=== PATIENT | female | born 1960 | race Two or more races ===

== ENCOUNTER 2024-09-13 05:27 | Emergency (ER) | payer OTHER, SELFPAY ==
[~2024-09-13] VITALS: Ht 157.5 cm; Wt 69.0 kg
--- NOTE | 2024-09-13 05:31 | ECG ---
[facility] Test Date: 2024-09-13 Test Time: 05:29:24 Pat Name: SELVIN PINEDA Department: ED Room: Gender: F Hose Inspector: NU : 1960 Requested By: EMERGENCY EMERGENCY Order Number: [id number] Reading MD: Measurements Intervals [place] Rate: 74 P: 50 MN: 192 QRS: 55 QRSD: 87 T: 28 QT: 368 QTc: 409 Interpretive Statements Sinus rhythm Probable left atrial enlargement Please click the below link to view image of tracing.
[2024-09-13 07:15] VITALS: BP 107/54; PULSE 66; RESP 16; TEMP 97.7; O2SAT 96
--- NOTE | 2024-09-13 07:18 | ED.PDOC ---
History of Present Illness HPI Comments 64-year-old female presents to the ER with prior medical history of hypertension; surgical history of valve replacement surgery, cholecystectomy, C- section and a chief complaint of chest pain. Patient reports on waking up at 04:30a.m. this morning with chest pain radiating down the left arm and the back. Patient notes the the chest is tender to touch. Denies chills, fever, N/V/D, SOB. No other associated symptoms, modifiers, recent injuries or sick contacts present at this time. 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 History Family History Family History: Reviewed,noncontributory to illness, Unknown Social History Smoker: Non-Smoker Alcohol: Denies ETOH Use Drugs: Denies Drug Use Lives In: Home Constitutional: denies: chills, diaphoresis, fatigue, fever, malaise, sweats, weakness, others EENTM: denies: blurred vision, double vision, ear bleeding, ear discharge, ear drainage, ear pain, ear ringing, eye pain, eye redness, hearing loss, mouth pain, mouth swelling, nasal discharge, nose bleeding, nose congestion, nose pain, photophobia, tearing, throat pain, throat swelling, voice changes, others Respiratory: denies: cough, hemoptysis, orthopnea, SOB at rest, shortness of breath, SOB with excertion, stridor, wheezing, others Cardiovascular: reports: chest pain, left arm pain; denies: dizzy spells, diaphoresis, Dyspnea on exertion, edema, irregular heart beat, lightheadedness, palpitations, PND, syncope, others Gastrointestinal: denies: abdomen distended, abdominal pain, blood streaked bowels, constipated, diarrhea, dysphagia, difficulty swallowing, hematemesis, melena, nausea, poor appetite, poor fluid intake, rectal bleeding, rectal pain, vomiting, others Genitourinary: denies: abnormal vagina bleeding, burning, dyspareunia, dysuria, flank pain, frequency, hematuria, incontinence, pain, , vagina discharge, urgency, others Neurological: denies: dizziness, fainting, headache, left sided numbness, left sided weakness, numbness, paresthesia, pre-existing deficit, right sided numbness, right sided weakness, seizure, speech problems, tingling, tremors, weakness, others Musculoskeletal: reports: back pain; denies: gout, joint pain, joint swelling, muscle pain, muscle stiffness, neck pain, others Integumetry: denies: bruises, change in color, change in hair/nails, dryness, laceration, lesions, lumps, rash, wounds, others Allergic/Immunocompromised: denies: Difficulty Healing, Frequent Infections, Hives, Itching, others Hematologic/Lymphatic: denies: anemia, blood clots, easy bleeding, easy bruisi ng, swollen glands, others Endocrine: denies: excessive hunger, excessive sweating, excessive thirst, exce ssive urination, flushing, intolerance to cold, intolerance to heat, unexplained weight gain, unexplained weight loss, others Psychiatric: denies: anxiety, bipolar disorder, depression, hopeless, panic disorder, schizophrenia, sleepless, suicidal, others All Other Systems: Reviewed and Negative Physical Exam General Appearance: Moderate Distress, Normal HEENT: Normal ENT Inspection, Pharynx Normal, TMs Normal Neck: Full Range of Motion, Non-Tender, Normal, Normal Inspection Respiratory: Chest Non-Tender, Lungs Clear, No Accessory Muscle Use, No Respiratory Distress, Normal Breath Sounds Cardiovascular: No Edema, No JVD, No Murmur, No Gallop, Normal Peripheral Pulses, Regular Rate/Rhythm Breast Exam: Deferred Gastrointestinal: No Organomegaly, Non Tender, No Pulsatile Mass, Normal Bowel Sounds, Soft Genitalia: Deferred Pelvic: Deferred Rectal: Deferred Extremities: No calf tenderness, Normal capillary refill, Normal inspection, Normal range of motion, Non-tender, No pedal edema Musculoskeletal : Apperance: Normal Neurologic: Alert, sap integration architect II-XII nml as Tested, No Motor Deficits, Normal Affect, Normal Mood, No Sensory Deficits Cerebellar Function: Normal Reflexes: Normal Skin: Dry, Normal Color, Warm Peripheral Pulses: 3+ Radial (R), 3+ Radial (L) Lymphatic: No Adenopathy Was a procedure done? Was a procedure done?: No Differential Dx Considerations may include: Musculoskeletal pain Anxiety X-Ray, Labs, Meds, VS Vital Signs Date Time Temp Pulse Resp B/P (MAP) Pulse Ox O2 Delivery O2 Flow Rate FiO2 09/13/24 07:15 66 16 96 Room Air 09/13/24 07:15 97.7 66 16 107/54 (71) 96 97.7 09/13/24 06:29 67 09/13/24 05:35 96.6 70 15 115/69 (84) 95 96.6 09/13/24 05:29 74 Lab Test 09/13/24 06:35 09/13/24 05:40 Range/Units Troponin I High Sensitivity < 3 L 3 L </=34 ng/L Urine Color Yellow Yellow Urine Clarity Clear Clear Urine pH 5.5 5.0-9.0 Urine Specific [place] 1.023 1.001-1.035 Urine Protein Negative Negative Urine Ketones Negative Negative Urine Blood Negative Negative /uL Urine Nitrite Negative Negative Urine Bilirubin Negative Negative Urine Urobilinogen Normal Negative mg/dL Urine Leukocyte Esterase 1+ Negative /uL Urine RBC 1 0 - 4 /hpf Urine Microscopic WBC 3 0-5 /HPF Urine Squamous Epithelial Cells Few <5 /hpf Urine Calcium Oxalate Crystals Few None Seen Urine Bacteria None seen None Seen /hpf Urine Mucus Few None Seen Urine Glucose Normal Normal mg/dL Patient alert. No sign of distress. Vitals stable. Answering questions. EKG reviewed does not show any acute changes. Cardiac marker within normal limits. Saturation pristine on room air. Respiratory rate within normal limits. Heart rate within normal limits. Reviewed her history. UA shows UTI. Was given prescription of Macrobid antibiotic. Explained to the patient. Was told to follow up with her primary care physician. Was told to come back if there is any problem. Time of 1ST Reevaluation: 07:15 Reevaluation 1ST: Improved Patient Education/Counseling: Diagnosis, Treatment, Prognosis Family Education/Counseling: No Family Present SEPSIS Sepsis Screen Date sepsis recognized/suspect: Sep 13, 2024 Time Sepsis recognized/suspect: 0535 Recent Procedure: No On Antibiotic Therapy: No Respiratory Rate >20: No Heart Rate >90: No Temp<36 C (96.8 F) or >38.3 C: No SBP <90 or MAP <65 mmHG: No New Acute Mental Status Change: No Is the patient on CPAP, BIPAP,: No Physician Orders Electrocardigram (09/13/24 06:30) Electrocardigram (09/13/24 08:30) Vital Signs Date Time Temp Pulse Resp B/P (MAP) Pulse Ox O2 Delivery O2 Flow Rate FiO2 09/13/24 07:15 66 16 96 Room Air 09/13/24 07:15 97.7 66 16 107/54 (71) 96 97.7 09/13/24 06:29 67 09/13/24 05:35 96.6 70 15 115/69 (84) 95 96.6 09/13/24 05:29 74 Departure 1 Departure Time of Disposition: 07:28 Impression: Primary Impression: Musculoskeletal chest pain Additional Impression: UTI (urinary tract infection) Qualified Codes: N30.00 - Acute cystitis without hematuria Disposition: 01 HOME / SELF CARE / HOMELESS Condition: Good e-Prescriptions Nitrofurantoin Monohydrate Mac (Macrobid) 100 Mg Cap 100 MG PO BID for 5 Days, #10 CAP Prov: SRINI BURNETT MD 09/13/24 Discharged With: Self Critical Care Note Critical Care Time?: No Stability Stability form required: No Heart Score Heart Score: Heart Score Response (Comments) Value History Slightly Suspicious 0 EKG Normal 0 Age 45-64 1 Risk Factors 1 or 2 risk factors 1 Troponin Normal limit 0 Total 2 I personally scribed for SRINI BURNETT MD ([email or web address]) on 09/13/24 at 07:18. Electronically submitted by Capo Marshall ([email or web address]). SRINI BURNETT MD Sep 13, 2024 07:18
[2024-09-13 07:26] LABS: Urine Bacteria None Seen /hpf (None Seen)
[2024-09-13 07:38] LABS: Urine Blood Negative /uL (Negative); Urine Clarity Clear (Clear); Urine Color Yellow (Yellow); Urine Mucus FEW (None Seen); Urine Protein, UAD Negative (Negative); Urine Specific Gravity 1.023 (1.001-1.035); Urine Squamous Epithelial Cell FEW /hpf (<5); Urine Urobilinogen Normal (Negative); Urine WBC 3 /HPF (0-5); Urine pH 5.5 (5.0-9.0)
[2024-09-13] MEDS ORDERED: NITR-87 PO (07:45)
--- NOTE | 2024-09-15 08:53 | ECG ---
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
== END 2024-09-13 07:52 | disposition home or self-care (01) ==
LOC: ER 05:27
DX: N39.0 Urinary tract infection, site not specified (principal); M79.18 Myalgia, other site; I10 Essential (primary) hypertension; Z90.49 Acquired absence of other specified parts of digestive tract; Z95.2 Presence of prosthetic heart valve
CPT/HCPCS: 36415; 81001; 84484; 93005

== ENCOUNTER 2024-09-18 09:26 | Inpatient (IN) | payer SELFPAY ==
[~2024-09-18] VITALS: Ht 157.5 cm; Wt 72.5 kg
[~2024-09-18 09:26] MED LIST: NITR-87 PO
--- NOTE | 2024-09-18 09:41 | ED.PDOC ---
History of Present Illness HPI Comments 64-year-old female brought in by EMS presents with a chief complaint of syncope with associated diarrhea, weakness, and dizziness. Patient was getting up to use the restroom and had watery diarrhea. Patient then reports that she attempted to shower, but got really dizzy and then had a syncopal episode in the shower. 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: No Pertinent EXECUTIVE RECEPTIONIST History Family History Family History: Reviewed,noncontributory to illness, Unknown Social History Smoker: Non-Smoker Alcohol: Denies ETOH Use Drugs: Denies Drug Use Lives In: Home Constitutional: reports: weakness; denies: chills, diaphoresis, fatigue, fever, malaise, sweats, others EENTM: denies: blurred vision, double vision, ear bleeding, ear discharge, ear drainage, ear pain, ear ringing, eye pain, eye redness, hearing loss, mouth pain, mouth swelling, nasal discharge, nose bleeding, nose congestion, nose pain, photophobia, tearing, throat pain, throat swelling, voice changes, others Respiratory: denies: cough, hemoptysis, orthopnea, SOB at rest, shortness of breath, SOB with excertion, stridor, wheezing, others Cardiovascular: reports: syncope; denies: chest pain, dizzy spells, diaphoresis, Dyspnea on exertion, edema, irregular heart beat, left arm pain, lightheadedness, palpitations, PND, others Gastrointestinal: reports: diarrhea; denies: abdomen distended, abdominal pain, blood streaked bowels, constipated, dysphagia, difficulty swallowing, hemateme sis, melena, nausea, poor appetite, poor fluid intake, rectal bleeding, rectal pain, vomiting, others Genitourinary: denies: abnormal vagina bleeding, burning, dyspareunia, dysuria, flank pain, frequency, hematuria, incontinence, pain, , vagina discharge, urgency, others Neurological: reports: dizziness; denies: fainting, headache, left sided numbness, left sided weakness, numbness, paresthesia, pre-existing deficit, right sided numbness, right sided weakness, seizure, speech problems, tingling, tremors, weakness, others Musculoskeletal: denies: back pain, gout, joint pain, joint swelling, muscle pain, muscle stiffness, neck pain, others Integumetry: denies: bruises, change in color, change in hair/nails, dryness, laceration, lesions, lumps, rash, wounds, others Allergic/Immunocompromised: denies: Difficulty Healing, Frequent Infections, Hives, Itching, others Hematologic/Lymphatic: denies: anemia, blood clots, easy bleeding, easy bruising, swollen glands, others Endocrine: denies: excessive hunger, excessive sweating, excessive thirst, excessive urination, flushing, intolerance to cold, intolerance to heat, unexplained weight gain, unexplained weight loss, others Psychiatric: denies: anxiety, bipolar disorder, depression, hopeless, panic disorder, schizophrenia, sleepless, suicidal, others All Other Systems: Reviewed and Negative Physical Exam General Appearance: Moderate Distress, Normal HEENT: Normal ENT Inspection, Pharynx Normal, TMs Normal Neck: Full Range of Motion, Non-Tender, Normal, Normal Inspection Respiratory: Chest Non-Tender, Lungs Clear, No Accessory Muscle Use, No Respiratory Distress, Normal Breath Sounds Cardiovascular: No Edema, No JVD, No Murmur, No Gallop, Normal Peripheral Pulses, Regular Rate/Rhythm Breast Exam: Deferred Gastrointestinal: No Organomegaly, Non Tender, No Pulsatile Mass, Normal Bowel Sounds, Soft Genitalia: Deferred Pelvic: Deferred Rectal: Deferred Extremities: No calf tenderness, Normal capillary refill, Normal inspection, Normal range of motion, Non-tender, No pedal edema Musculoskeletal : Apperance: Normal Neurologic: Alert, sewer cleaner II-XII nml as Tested, No Motor Deficits, Normal Affect, Normal Mood, No Sensory Deficits Cerebellar Function: Normal Reflexes: Normal Skin: Dry, Normal Color, Warm Peripheral Pulses: 3+ Radial (R), 3+ Radial (L) Lymphatic: No Adenopathy Was a procedure done? Was a procedure done?: No EKG EKG : Pulse Rate (adult): 88 [place]: Normal Cardiac Rhythm: NSR Block: None Hypertrophy: None ST: Normal Differential Dx Considerations may include: Anemia Electrolyte imbalance X-Ray, Labs, Meds, VS Vital Signs Date Time Temp Pulse Resp B/P (MAP) Pulse Ox O2 Delivery O2 Flow Rate FiO2 09/18/24 09:41 88 09/18/24 09:34 98.2 87 18 135/51 (79) 98 98.2 09/18/24 09:32 88 Lab Test 09/18/24 10:02 09/18/24 09:55 Range/Units White Blood Count Pending Red Blood Count Pending Hemoglobin Pending Hematocrit Pending Mean Corpuscular Volume Pending Mean Corpuscular Hemoglobin Pending Mean Corpuscular Hemoglobin Concent Pending Red Cell Distribution Width Pending Platelet Count Pending Mean Platelet Volume Pending Neutrophils (%) (Auto) Pending Lymphocytes (%) (Auto) Pending Monocytes (%) (Auto) Pending Basophils (%) (Auto) Pending Neutrophils # (Auto) Pending Lymphocytes # (Auto) Pending Monocytes # (Auto) Pending Sodium Level Pending Potassium Level Pending Chloride Level Pending Carbon Dioxide Level Pending Anion Gap Pending Blood Urea Nitrogen Pending Creatinine Pending Glomerular Filtration Rate Calc Pending BUN/Creatinine Ratio Pending Serum Glucose Pending Calcium Level Pending Troponin I High Sensitivity Pending POC Glucose 81 70-106 mg/dl Current Medications Medications (Trade) Dose Ordered Sig/Leigh Route Start Time Stop Time Status Last Admin Sodium Chloride 1,000 ml @ 1,000 mls/hr Q1H ONCE IV 09/18/24 09:45 09/18/24 10:44 DC 09/18/24 09:45 Patient alert. Vitals stable. Possible near-syncope. Answering questions. Blood sugar within normal limits. Saturation pristine on room air. She is comfortable. Abdomen is soft nontender.y acute changes. Explained to the patient. Continue monitoring. CT of the head reviewed does not show an Time of 1ST Reevaluation: 10:01 Reevaluation 1ST: Unchanged Patient Education/Counseling: Diagnosis, Treatment, Need For Follow Up Family Education/Counseling: Diagnosis, Treatment, Need For Follow Up SEPSIS Sepsis Screen Physician Orders Head Without Contrast (09/18/24 09:33) Troponin-I Hs (09/18/24 09:33) Complete Blood Count (09/18/24 09:33) Chest Portable (09/18/24 09:33) Urinalysis (09/18/24 09:33) Basic Metabolic Panel (09/18/24 09:33) Electrocardigram (09/18/24 09:38) Ketorolac Injection (Toradol Injection) (09/18/24 10:45) Vital Signs Date Time Temp Pulse Resp B/P (MAP) Pulse Ox O2 Delivery O2 Flow Rate FiO2 09/18/24 09:41 88 09/18/24 09:34 98.2 87 18 135/51 (79) 98 98.2 09/18/24 09:32 88 Laboratory Tests Test 09/18/24 10:02 White Blood Count Pending Medications Medications Dose Ordered Sig/Leigh Route Start Time Stop Time Status Last Admin Dose Admin Sodium Chloride 1,000 ml @ 1,000 mls/hr Q1H ONCE IV 09/18/24 09:45 09/18/24 10:44 DC 09/18/24 09:45 Departure 1 Departure Time of Disposition: 10:12 Impression: Primary Impression: Near syncope Disposition: ADMITTED INPATIENT Admit to: Med Surg Condition: Guarded Critical Care Note Critical Care Time?: No Stability Stability form required: No Heart Score Heart Score: Heart Score Response (Comments) Value History N/A 0 EKG N/A 0 Age N/A 0 Risk Factors N/A 0 Troponin N/A 0 Total 0 I personally scribed for SRINI BURNETT MD ([email or web address]) on 09/18/24 at 09:41. Electronically submitted by Fleipe Lacey ([email or web address]). SRINI BURNETT MD Sep 18, 2024 09:41
[2024-09-18] MEDS: SODIUM CHLORIDE 0.9% 1,000 ML IV ONE ×2 (09:45→14:30)
[2024-09-18 09:50] VITALS: PULSE 90; RESP 16; O2SAT 96
--- NOTE | 2024-09-18 10:20 | DVH ---
CLINICAL INFORMATION: 64 years old, Female; syncope. TECHNIQUE: Axial imaging was obtained through the brain without contrast. Coronal and sagittal reform atted images were obtained, reviewed, and stored. Images were reviewed in brain and bone windows. Al l CT scans at this medical facility are performed using dose modulation techniques as appropriate to a performed exam including the following: Automated exposure control was utilized; adjustment of the MA and/or KV according to patient size; and use of iterative reconstruction technique. CTDIvol = 53.3 8 mGy DLP = 945.26 mGy-cm COMPARISON: None FINDINGS: There is no acute intracranial hemorrhage. No mass effect or midline shift. 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 The vent ricles and sulci are within normal limits in size for age. Basal cisterns are patent. The calvarium is unremarkable. Retention cyst versus polyp in the left maxillary sinus. Mastoid air cells are clear . IMPRESSION: 1. No CT evidence of acute intracranial abnormality. 2. Nonacute findings as described above.
[2024-09-18 10:31] LABS: Nucleated Red Blood Cells % 0.1 %
[2024-09-18 10:33] LABS: Hematocrit 40.0 % (36.0-46.0); Hemoglobin 12.8 g/dL (12.2-16.2); Mean Corpuscular Hemoglobin 20.8 pg (28.0-32.0); Mean Corpuscular Volume 64.8 fL (80.0-100.0)
--- NOTE | 2024-09-18 10:41 | DVH ---
CLINICAL INFORMATION: Shortness of breath. TECHNIQUE: Single AP portable chest radiograph was obtained. COMPARISON: None FINDINGS: Lungs: Clear. Cardiac: Heart size is within normal limits. Postsurgical changes of prior CABG. Pulmonary vasculature: Mildly prominent pulmonary vasculature. Mediastinum/mark anthony: Unremarkable. Bones: No acute osseous abnormality identified. Suture anchors in the left proximal humerus. Other: No other significant findings. IMPRESSION: Mildly prominent pulmonary vasculature, may be seen with mild pulmonary vascular congestion in the ap propriate clinical setting, although heart size is within normal limits. Correlate with clinical find ings.
[2024-09-18] MEDS: KETOROLAC TROMETH 30 MG/ML 1ML VIAL IV ONE (10:48)
[2024-09-18 10:55] LABS: Potassium 4.7 mmol/L (3.5-5.1); Sodium 140 mmol/L (136-145)
[2024-09-18 10:56] LABS: Anion Gap 10 (5-15); Carbon Dioxide 20 mmol/L (20-31)
[2024-09-18 10:57] LABS: Calcium 9.8 mg/dL (8.7-10.4)
[2024-09-18 11:02] LABS: BUN/Creatinine Ratio 20.8 (10.0-20.0); Blood Urea Nitrogen 25 mg/dL (9-23); Chloride 110 mmol/L (98-107); Glucose 95 mg/dL (74-106)
[2024-09-18] MEDS: SODIUM CHLORIDE 0.9% 2,000 ML IV ONE (11:32)
[2024-09-18] MEDS: HYDROcodone-ACET 5/325MG TAB PO ONE (13:23)
[2024-09-18 13:57] LABS: Urine Protein, UAD Negative (Negative)
--- NOTE | 2024-09-18 18:23 | DVHHP2 ---
Admitting Diagnosis: Syncope History of Present Illness 64-year-old female brought in by EMS presents with a chief complaint of syncope with associated diarrhea, weakness, and dizziness. Patient was getting up to use the restroom and had watery diarrhea. Patient then reports that she attempted to shower, but got really dizzy and then had a syncopal episode in the shower. 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 History Family History Family History: Reviewed,noncontributory to illness, Unknown Social History Smoker: Non-Smoker Alcohol: Denies ETOH Use Drugs: Denies Drug Use Lives In: Home Allergies: Coded Allergies: NO KNOWN ALLERGIES (Unverified , 09/13/24) Home Meds Active Scripts Nitrofurantoin Monohydrate Mac (Macrobid) 100 Mg Cap, 100 MG PO BID for 5 Days, #10 CAP Prov:SRINI BURNETT MD 09/13/24 Vital Signs Vital Signs Date Time Temp Pulse Resp B/P (MAP) Pulse Ox O2 Delivery O2 Flow Rate FiO2 09/18/24 17:20 92 16 93/47 (62) 95 09/18/24 09:50 Room Air* 0 21 09/18/24 09:50 98.3 98.3 Physical Exam General-64 years old woman, resting in bed. Mild distress HEENT-no side tenderness from fall. no hematoma Heart-regular rate and rhythm Lungs clear to auscultate Abdomen soft nontender nondistended Musculoskeletal-no edema cyanosis Neuro-AO x3, no focal deficit Results Labs Test 09/18/24 11:30 09/18/24 10:02 09/18/24 09:55 Range/Units Urine Color Light-yellow Yellow Urine Clarity Clear Clear Urine pH 5.0 5.0-9.0 Urine Specific [place] 1.009 1.001-1.035 Urine Protein Negative Negative Urine Ketones Negative Negative Urine Blood Negative Negative /uL Urine Nitrite Negative Negative Urine Bilirubin Negative Negative Urine Urobilinogen Normal Negative mg/dL Urine Leukocyte Esterase Negative Negative /uL Urine RBC 1 0 - 4 /hpf Urine Microscopic WBC < 1 0-5 /HPF Urine Squamous Epithelial Cells None seen <5 /hpf Urine Bacteria None seen None Seen /hpf Urine Hyaline Casts Few 0 - 2 /lpf Urine Mucus Few None Seen Urine Glucose Normal Normal mg/dL White Blood Count 8.3 4.4-10.8 10^3/uL Red Blood Count 6.16 H 4.0-5.20 10^6/uL Hemoglobin 12.8 12.2-16.2 g/dL Hematocrit 40.0 36.0-46.0 % Mean Corpuscular Volume 64.8 L 80.0-100.0 fL Mean Corpuscular Hemoglobin 20.8 L 28.0-32.0 pg Mean Corpuscular Hemoglobin Concent 32.1 32.0-36.0 g/dL Red Cell Distribution Width 16.0 H 11.8-14.3 % Platelet Count 208 140-450 10^3/uL Mean Platelet Volume 10.2 6.9-10.8 fL Neutrophils (%) (Auto) 89.6 H 37.0-80.0 % Lymphocytes (%) (Auto) 5.0 L 10.0-50.0 % Monocytes (%) (Auto) 4.5 0.0-12.0 % Eosinophils (%) (Auto) 0.7 0.0-7.0 % Basophils (%) (Auto) 0.2 0.0-2.0 % Neutrophils # (Auto) 7.4 1.6-8.6 10 ^3/uL Lymphocytes # (Auto) 0.4 0.4-5.4 10 ^3/uL Monocytes # (Auto) 0.4 0-1.3 10 ^3/uL Eosinophils # (Auto) 0.1 0-0.8 10 ^3/uL Basophils # (Auto) 0 0-0.2 10 ^3/uL Nucleated Red Blood Cells 0.1 % Sodium Level 140 136-145 mmol/L Potassium Level 4.7 3.5-5.1 mmol/L Chloride Level 110 H 98-107 mmol/L Carbon Dioxide Level 20 20-31 mmol/L Anion Gap 10 5-15 Blood Urea Nitrogen 25 H 9-23 mg/dL Creatinine 1.20 H 0.550-1.02 mg/dL Glomerular Filtration Rate Calc 51 >90 mL/min BUN/Creatinine Ratio 20.8 H 10.0-20.0 Serum Glucose 95 74-106 mg/dL Calcium Level 9.8 8.7-10.4 mg/dL Troponin I High Sensitivity < 3 L </=34 ng/L B-Type Natriuretic Peptide 67.59 0-100 pg/mL POC Glucose 81 70-106 mg/dl Primary Diagnosis Syncope Rib pain Back pain Plan Patient states that her mother has resolved Pain after fall patient had a pain, back pain and right chest pain X-ray of the head and chest x-ray shows no fractures hematoma Check x-ray of lumbar spine thoracic spine and pelvis Check echo of the heart to rule out heart disease Carotid Doppler to rule out stenosis Neuro check per floor protocol IV fluids Repeat orthostatic vitals tomorrow morning Regular diet Full code Lovenox for DVT prophylaxis No GI prophylaxis needed Plan discussed with: Patient Date of Service: Sep 18, 2024 Billing Provider: FARHAD GREGG MD Common Visit Codes: 68172-[id number] INP/OBS CARE (HIGH) FARHAD GREGG MD Sep 18, 2024 18:23
[2024-09-18] MEDS ORDERED: ACETAMINOPHEN 325 MG TAB PO PRN (18:30)
[2024-09-18] MEDS ORDERED: ONDANSETRON HCL 4 MG/2 ML VIAL IV PRN (18:30)
[2024-09-18] MEDS ORDERED: DOCUSATE SOD 100 MG CAP PO PRN (18:30)
[2024-09-18] MEDS ORDERED: KETOROLAC TROMETH 30 MG/ML 1ML VIAL IV PRN (18:30)
[2024-09-18] MEDS: LACTATED RINGER'S 1,000 ML IV ONE (18:53)
--- NOTE | 2024-09-18 18:53 | ECG ---
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
--- NOTE | 2024-09-18 19:51 | DVH ---
EXAM: XY LUMBAR SPINE 3 VIEW INDICATION: fall with back pain COMPARISON: None TECHNIQUE: 3 views of the lumbar spine were obtained. Findings: There is no evidence of spondylolysis. Minimal grade 1 anterolisthesis of L4 on L5. Age-indeterminate moderate wedge-shaped compression fracture of T12. The disc spaces are well-maintained. No blastic or lytic lesions are appreciated. No radiopaque foreign bodies. No superficial soft tissue abnormalities. Impression: 1. Age-indeterminate moderate wedge-shaped compression fracture of T12. 2. Minimal grade 1 anterolisthesis of L4 on L5.
--- NOTE | 2024-09-18 19:52 | DVH ---
EXAM: XY SPINE THORACIC 2VIEW INDICATION: back pain r/o fall from syncope COMPARISON: None TECHNIQUE: 2 views of the thoracic spine were obtained. Findings: There is no evidence of spondylolysis, or spondylolisthesis. Age-indeterminate moderate wedge-shaped compression fracture T12. The disc spaces are well-maintained. No blastic or lytic lesions are appreciated. No radiopaque foreign bodies. No superficial soft tissue abnormalities. Impression: 1. Age-indeterminate moderate wedge-shaped compression fracture T12.
--- NOTE | 2024-09-18 19:55 | DVH ---
EXAM: XY PELVIS AP CLINICAL HISTORY: back pain r/o fall from syncope COMPARISON: None TECHNIQUE: XY PELVIS AP Findings/Impression: Single frontal view of the pelvis. There is no evidence of an acute fracture, dislocation, blastic, or lytic lesions. No radiopaque foreign bodies. No superficial soft tissue abnormalities.
[2024-09-18] MEDS ORDERED: WARF-112 PO (21:04)
[2024-09-18] MEDS ORDERED: ASPI-325 PO (21:04)
[2024-09-18] MEDS ORDERED: FER325T PO (21:04)
[2024-09-18] MEDS ORDERED: FENO160T PO (21:04)
[2024-09-18] MEDS ORDERED: CHOL20003 PO (21:04)
[2024-09-18] MEDS ORDERED: FURO20TA4 PO (21:04)
[2024-09-18] MEDS ORDERED: MET25T PO (21:04)
[2024-09-18 21:26] VITALS: BP 99/54; PULSE 93; RESP 18; TEMP 98.2; O2SAT 97
[2024-09-18] MEDS: SODIUM CHLOR 0.9% PF (SALINE LOCK) 10ML VIAL/SYR IV SCH (22:00)
[2024-09-19] VITALS (7 sets, daily range): BP systolic 92–116; BP diastolic 53–67; PULSE 82–95; RESP 17–19; TEMP 98.2–99.9; O2SAT 94–97
[2024-09-19] MEDS: KETOROLAC TROMETH 30 MG/ML 1ML VIAL IV PRN (04:19)
--- NOTE | 2024-09-19 10:34 | DVH ---
CLINICAL HISTORY: syncope TECHNIQUE: Duplex carotid Doppler ultrasound was performed. Grayscale, color-flow, and spectral wavef orm analysis was performed. COMPARISON: None FINDINGS: There is minimal plaque seen on lewis scale imaging in the carotid bifurcations and proximal ICAs bila terally. There is no significant elevation of the peak systolic velocity. There is no significant spectral broadening. Color doppler examination demonstrates no evidence for significant turbulent fl ow. Findings correspond to the less than 50% stenosis category. Antegrade flow is noted in both valerie tebral arteries. EXAMINATION DATA: RIGHT PSV (cm/s) EDV (cm/s) ICA 87 27 CCA 78 ECA 99 ICA/CCA Ratio: 1.1 Vertebral Flow: antegrade LEFT PSV (cm/s) EDV (cm/s) ICA 108 27 CCA 70 ECA 98 ICA/CCA Ratio: 1.5 Vertebral Flow: antegrade IMPRESSION: Findings consistent with the less than 50% carotid stenosis category bilaterally.
--- NOTE | 2024-09-19 10:57 | DVHPN2 ---
Reviewed: Care Plan, H&P, Labs, Medications, Previous Orders, Radiology Changes from previous H/P or p: No Changes General: Per HPI Objective Vitals Vital Signs Date Time Temp Pulse Resp B/P (MAP) Pulse Ox O2 Delivery O2 Flow Rate FiO2 09/19/24 08:46 98.8 87 17 93/53 (66) 94 98.8 09/19/24 02:44 Room Air* 0 21 Intake/Output Intake and Output 09/19/24 07:00 Intake Total 4000 ml Output Total 700 ml Balance 3300 ml Intake Oral 0 ml IV Total 4000 ml Output Urine Total 700 ml # Voids 1 General Appearance: Alert, Oriented X3, Cooperative HEENT: Atraumatic Cardiovascular: Regular rate, Normal S1 Extremities: No clubbing, No cyanosis Medications Current Medications Medications Dose Ordered Sig/Leigh Route Start Time Stop Time Status Last Admin Dose Admin Sodium Chloride 10 ml Q8HR IV 09/18/24 22:00 09/19/24 06:35 10 ML Docusate Sodium 100 mg BIDPRN PRN PO 09/18/24 18:30 Acetaminophen 650 mg Q6HP PRN PO 09/18/24 18:30 Acetaminophen/ Hydrocodone Bitart 1 tab Q4HP PRN PO 09/18/24 18:30 Ondansetron HCl 4 mg Q4HP PRN IV 09/18/24 18:30 Enoxaparin Sodium 40 mg DAILY SC 09/19/24 10:00 Ketorolac Tromethamine 15 mg Q8H PRN IV 09/18/24 19:00 09/23/24 18:29 09/19/24 04:19 15 MG Laboratory Results Laboratory Tests 09/18/24 10:02 Urinalysis Test 09/18/24 11:30 Urine Color Light-yellow (Yellow) Urine Clarity Clear (Clear) Urine pH 5.0 (5.0-9.0) Urine Specific [place] 1.009 (1.001-1.035) Urine Protein Negative (Negative) Urine Ketones Negative (Negative) Urine Blood Negative /uL (Negative) Urine Nitrite Negative (Negative) Urine Bilirubin Negative (Negative) Urine Urobilinogen Normal mg/dL (Negative) Urine Leukocyte Esterase Negative /uL (Negative) Urine RBC 1 /hpf (0 - 4) Urine Microscopic WBC < 1 /HPF (0-5) Urine Squamous Epithelial Cells None seen /hpf (<5) Urine Bacteria None seen /hpf (None Seen) Urine Hyaline Casts Few /lpf (0 - 2) Urine Mucus Few (None Seen) Urine Glucose Normal mg/dL (Normal) Labs and/or images reviewed: Labs reviewed by me, Image(s) reviewed by me Assessment/Plan Assessment/Plan Syncope , ruling out cardiac etiology Rib pain Back pain Diarrhea 09/19/2024. Patient is pending an echo. Neurology and Cardiology consulted. We will await for their full evaluation Discussed with son at the bedside Plan discussed with: Patient Date of Service: Sep 19, 2024 Billing Provider: AIDEN PEREZ DO Common Visit Codes: [id number] INP/OBS CARE(HIGH) AIDEN PEREZ DO Sep 19, 2024 10:57
[2024-09-19] MEDS: ENOXAPARIN SOD 40 MG/0.4 ML SYRINGE SC SCH (11:45)
--- NOTE | 2024-09-19 16:06 | DVHSR ---
APPROVED REPORT EXAM: LIMITED Two-dimensional and M-mode echocardiogram with Doppler and color Doppler. Blood Pressure: 93/53 mmHg INDICATION Syncope Surgery/Intervention Valve Replacement: Mechanical RISK FACTORS Height: 5' 2", Weight: 158 DIMENSIONS LVDd4.0 (3.8-5.7cm)LA (2D)3.9 (1.9-4.0cm)Aortic Root (2.0-3.7cm) LVDs2.6 (2.5-4.0cm)LA (MM) (1.9-4.0cm)Aortic Cusp Exc (1.5-2.0cm) EF (%) 65.0 (55-70%)Rt. Atrium4.0 (1.9-4.0cm)Asc. Aorta cm IVSd1.1 (0.7-1.1cm)RV (D) (1.8-2.4cm) PWd0.9 (0.7-1.1cm) Mitral Valve MitralMitral Stenosis E wave0.90m/sMV Mean GR.mmHg A wave1.00m/sMV Peak GR.mmHg E/A ratio0.92D MVAcm2 Aortic Valve Aortic ValveAortic Stenosis V11.10m/Christopher Mean GR.14mmHg V22.40m/Christopher Peak GR.24mmHg LVOT Diameter2.1 (1.8-2.4cm)Doppler AVA1.59cm2 Pulmonic Valve V20.80m/s Tricuspid Valve TR Velocity2.30m/s [id number] Other Information Quality : Technically LimitedRhythm : Technically limited study due to CABG. Conclusion lvef 55% moderate LVH normal rv function no severe valve abnormalities noted sp AVR mild mitral regurg
[2024-09-19] MEDS: HYDROcodone-ACET 5/325MG TAB PO PRN (17:33)
[2024-09-20] VITALS (7 sets, daily range): BP systolic 93–117; BP diastolic 53–71; PULSE 82–103; RESP 18–20; TEMP 98.2–98.5; O2SAT 95–96
[2024-09-20] MEDS: ACETAMINOPHEN 325 MG TAB PO PRN (04:13)
--- NOTE | 2024-09-20 10:04 | DVHINCON2 ---
Date of service: Sep 20, [address] aLwson Reason for Consultation Syncope History of Present Illness Ms. Lozada is a 64 years old right-handed female with a history of hypotension, overweight, she was admitted to the [facility] on 09/18/2024 with a chief complaint of passing out. At this time, she is alert and fully oriented, she and her provided the following history On 09/18/2024, when she was standing and just started showering, she has a hot flash arising from the bottom of her body to the head, along with a feeling that she was passing out, nausea, increased sweating, but next memory was waking up on the floor confused but she knew the place, time, and what she was doing supposed to do, she also woke up with nausea, increased sweating, headache before she had mumps head, but there was no chest pain. She has never had similar problem before, she has had no history of seizure or stroke On 09/20/2024, the patient had mild dizziness when she was request to stand up and walking On 08/27/2024, she came to the [facility] Emergency room with a chief complaint of chest pain and left arm weakness, but he was discharged because nothing wrong was found Urinalysis, 09/18/2024: Unremarkable CBC, 09/18/2024: Unremarkable BUN/CR, 09/18/2024: 25/102 GFR, 09/18/2024: 51 Troponin one high sensitivity, 09/13/24: 3, <3, 09/18/2024: <3 Echocardiogram, 09/19/2024: vef 55% moderate LVH normal rv function no severe valve abnormalities noted sp AVR mild mitral regurg Carotid Doppler, 09/19/2024: Findings consistent with the less than 50% carotid stenosis category bilaterally CT head, 09/18/2024: 1. No CT evidence of acute intracranial abnormality. 2. 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) Past Medical History Hypotension for many years Past Surgical History Cholecystectomy, Family History: Diabetes mellitus G8 MOTHER FH: heart attack G8 FATHER, Hypertension G8 MOTHER Family History Diabetes, coronary artery disease, heart attack, cardiomegaly Social History She is a not tobacco smoke, she denies a history of drug or alcohol abuse Allergies: Coded Allergies: NO KNOWN ALLERGIES (Unverified , 09/13/24) Home Meds Reported Medications Fenofibrate (Fenofibrate) 160 Mg Tab, 1 TAB PO DAILY 09/18/24 Aspirin (Aspirin Low Dose) 81 Mg Tab, 1 TAB PO DAILY 09/18/24 Warfarin Sodium (Warfarin Sodium) 4 Mg Tab, 1 TAB PO DAILY 09/18/24 Furosemide (Furosemide) 20 Mg Tab, 1 TAB PO DAILY 09/18/24 Metoprolol Tartrate (Lopressor) 25 Mg Tb, 1 TAB PO BID 09/18/24 Cholecalciferol (Vitamin D-3 Super Strengt) 2,000 Unit Tab, 50 MCG PO DAILY 09/18/24 Ferrous Sulfate (Ferrous Sulfate) 325 Mg Tab, 1 TAB PO DAILY 09/18/24 Current Medications Current Medications Medications (Trade) Dose Ordered Sig/Leigh Route PRN Reason Start Time Stop Time Status Last Admin Enoxaparin Sodium (Lovenox) 40 mg DAILY SC 09/19/24 10:00 09/19/24 11:45 Loperamide HCl (Imodium Capsule) 2 mg PRN PRN PO FOR DIARRHEA 09/20/24 04:15 Review of Systems As above, the other systems are negative Vital Signs Vital Signs Date Time Temp Pulse Resp B/P (MAP) Pulse Ox O2 Delivery O2 Flow Rate FiO2 09/20/24 08:11 98.5 89 18 103/59 (74) 95 98.5 09/20/24 08:00 Room Air* 0 21 Physical Exam GENERAL EXAM: General: the patient is well developed and nourished. No acute distress. HEENT: Normocephalic, neck is supple, no carotid bruits. No mass. RESPIRATORY: Normal respiratory effort with symmetrical lung expansion. Lungs clear to auscultation. CARDIOVASCULAR: Regular rate and rhythm with no murmurs. S1, S2. ABDOMEN: Soft, nontender, normal bowel sound NEUROLOGICAL: MENTAL STATUS: Awake and alert. Oriented to person, place, time and general circumstances. Able to give personal history. SPEECH, LANGUAGE, HIGHER CORTICAL FUNCTION: no aphasia or dysathria. CRANIAL NERVES: #2: Intact visual feldman to confrontation. The optic discs were sharp. #3,4,6: Pupils are equal, round and reactive. EOMs full and conjugate. Mild bilateral gaze evoked nystagmus. #5: Facial sensation intact in all three divisions bilaterally. Mandibular strength intact. #7: Facial muscles symmetrical and strength intact. #8: Hearing grossly normal to voice. #9,10: Uvula and soft palate rise in the midline. Swallow and voice are normal. #11: Trapezius and sternomastoid strength intact bilaterally. #12: Tongue midline. No fasciculations or atrophy. SENSATION: Sensation to touch and pinprick is normal. MOTOR: Normal tone in the upper and lower extremity. Normal muscle bulk. No fasciculations. No abnormal movements or posturing. Muscle strength of the major groups in the upper extremities is 5/5. Muscle strength of the major groups in the lower extremities is 5/5. REFLEXES: Deep tendon reflexes normal and symmetrical. No pathological reflexes. CEREBELLAR/COORDINATION: Finger to nose and heel to hancock are normal bilateral ly. GAIT/STATION: With normal Labs/Diagnostic Data Labs Test 09/18/24 11:30 09/18/24 10:02 09/18/24 09:55 Range/Units Urine Color Light-yellow Yellow Urine Clarity Clear Clear Urine pH 5.0 5.0-9.0 Urine Specific [place] 1.009 1.001-1.035 Urine Protein Negative Negative Urine Ketones Negative Negative Urine Blood Negative Negative /uL Urine Nitrite Negative Negative Urine Bilirubin Negative Negative Urine Urobilinogen Normal Negative mg/dL Urine Leukocyte Esterase Negative Negative /uL Urine RBC 1 0 - 4 /hpf Urine Microscopic WBC < 1 0-5 /HPF Urine Squamous Epithelial Cells None seen <5 /hpf Urine Bacteria None seen None Seen /hpf Urine Hyaline Casts Few 0 - 2 /lpf Urine Mucus Few None Seen Urine Glucose Normal Normal mg/dL White Blood Count 8.3 4.4-10.8 10^3/uL Red Blood Count 6.16 H 4.0-5.20 10^6/uL Hemoglobin 12.8 12.2-16.2 g/dL Hematocrit 40.0 36.0-46.0 % Mean Corpuscular Volume 64.8 L 80.0-100.0 fL Mean Corpuscular Hemoglobin 20.8 L 28.0-32.0 pg Mean Corpuscular Hemoglobin Concent 32.1 32.0-36.0 g/dL Red Cell Distribution Width 16.0 H 11.8-14.3 % Platelet Count 208 140-450 10^3/uL Mean Platelet Volume 10.2 6.9-10.8 fL Neutrophils (%) (Auto) 89.6 H 37.0-80.0 % Lymphocytes (%) (Auto) 5.0 L 10.0-50.0 % Monocytes (%) (Auto) 4.5 0.0-12.0 % Eosinophils (%) (Auto) 0.7 0.0-7.0 % Basophils (%) (Auto) 0.2 0.0-2.0 % Neutrophils # (Auto) 7.4 1.6-8.6 10 ^3/uL Lymphocytes # (Auto) 0.4 0.4-5.4 10 ^3/uL Monocytes # (Auto) 0.4 0-1.3 10 ^3/uL Eosinophils # (Auto) 0.1 0-0.8 10 ^3/uL Basophils # (Auto) 0 0-0.2 10 ^3/uL Nucleated Red Blood Cells 0.1 % Sodium Level 140 136-145 mmol/L Potassium Level 4.7 3.5-5.1 mmol/L Chloride Level 110 H 98-107 mmol/L Carbon Dioxide Level 20 20-31 mmol/L Anion Gap 10 5-15 Blood Urea Nitrogen 25 H 9-23 mg/dL Creatinine 1.20 H 0.550-1.02 mg/dL Glomerular Filtration Rate Calc 51 >90 mL/min BUN/Creatinine Ratio 20.8 H 10.0-20.0 Serum Glucose 95 74-106 mg/dL Calcium Level 9.8 8.7-10.4 mg/dL Troponin I High Sensitivity < 3 L </=34 ng/L B-Type Natriuretic Peptide 67.59 0-100 pg/mL POC Glucose 81 70-106 mg/dl Assessment Passing out Syncope Partial complex seizure, less likely TIA, less likely Chronic hypotension (confirmed in the hospital) Recent chest pain Plan/Recommendation Monitoring Supportive treatment Telemetry EEG MR head Syncopal precautions discussed Cardiology evaluation More recommendation per clinical course Progress: Poor This medical document was created using an electronic medical record system with [employer] system. Although this document has been carefully reviewed, there may still be some phonetic and typographical errors. These areas are purely typographical due to imperfections of the software programs, and do not reflect any compromise in the patient's medical care. Plan discussed with: Patient, Spouse, Other DOV MILLARD MD 7, 2025 10:04
[2024-09-20] MEDS: LOPERAMIDE HCL 2 MG CAP/TAB PO PRN (11:37)
[2024-09-20] MEDS: LORazepam 2MG/ML-1ML VIAL IV PRN (11:38)
--- NOTE | 2024-09-20 13:25 | DVHCONRES ---
Date Seen: Sep 20, 2024 Resident Creating Document: ELVIS TURK RESDIENT History of Present Illness This is a 64-year-old female with past medical history of hypertension, aortic valve replacement came to the hospital status post loss of consciousness. Per patient, she has diarrhea for couple of days. Yesterday, upon taking shower she felt dizzy, blurry vision and subsequently lost consciousness. She denies chest pain, shortness of breath, fever, palpitation, or any recent sick contact. Cardiology consulted for to rule out cardiac cause of syncope. She sees Dr. Donahue at office PMHx: hypertension, aortic valve replacement PSHx: Aortic valve replacement Home medication: Aspirin, fenofibrate, Lasix 20 mg daily, metoprolol 25 mg, and warfarin 4 mg daily Allergic history: No known allergy Patient seen and examined at bedside. Patient is complaining of headache and right-sided body pain due to traumatic injury. Family History: Diabetes mellitus G8 MOTHER FH: heart attack G8 FATHER, Hypertension G8 MOTHER Allergies: Coded Allergies: NO KNOWN ALLERGIES (Unverified , 09/13/24) Home Meds Reported Medications Fenofibrate (Fenofibrate) 160 Mg Tab, 1 TAB PO DAILY 09/18/24 Aspirin (Aspirin Low Dose) 81 Mg Tab, 1 TAB PO DAILY 09/18/24 Warfarin Sodium (Warfarin Sodium) 4 Mg Tab, 1 TAB PO DAILY 09/18/24 Furosemide (Furosemide) 20 Mg Tab, 1 TAB PO DAILY 09/18/24 Metoprolol Tartrate (Lopressor) 25 Mg Tb, 1 TAB PO BID 09/18/24 Cholecalciferol (Vitamin D-3 Super Strengt) 2,000 Unit Tab, 50 MCG PO DAILY 09/18/24 Ferrous Sulfate (Ferrous Sulfate) 325 Mg Tab, 1 TAB PO DAILY 09/18/24 Current Medications Current Medications Medications (Trade) Dose Ordered Sig/Leigh Route PRN Reason Start Time Stop Time Status Last Admin Loperamide HCl (Imodium Capsule) 2 mg PRN PRN PO FOR DIARRHEA 09/20/24 04:15 09/20/24 11:37 Lorazepam (Ativan Inj) 1 mg ONCE PRN IV MRI 09/20/24 10:45 09/20/24 11:38 Vital Signs Vital Signs Date Time Temp Pulse Resp B/P (MAP) Pulse Ox O2 Delivery O2 Flow Rate FiO2 09/20/24 13:00 98.5 82 18 106/58 (74) 96 98.5 09/20/24 08:00 Room Air* 0 21 Physical Exam General Appearance: Alert, Oriented X3, Cooperative, No acute distress HEENT: Atraumatic, PERRLA, EOMI, Mucous membrane moist/pink Respiratory: Clear to auscultation, Normal air movement Cardiovascular: Regular rate, Normal S1, Normal S2, No murmurs, no chest wall tenderness Abdominal: Normal bowel sounds, Soft, No tenderness, No hepatospenomegaly, No masses Extremities: No clubbing, No cyanosis, No edema, Normal pulses, No tenderness/swelling Skin: No rashes, No breakdown, No significant lesion Neuro: Normal gait, Normal speech, Strength at 5/5 X4 ext, Normal tone, Sensation intact, Cranial nerves 3-12 NL, Reflexes 2+ Psych/Mental Status: Mental status NL, Mood NL Labs/Diagnostic Data Labs Test 09/18/24 11:30 09/18/24 10:02 09/18/24 09:55 Range/Units Urine Color Light-yellow Yellow Urine Clarity Clear Clear Urine pH 5.0 5.0-9.0 Urine Specific [place] 1.009 1.001-1.035 Urine Protein Negative Negative Urine Ketones Negative Negative Urine Blood Negative Negative /uL Urine Nitrite Negative Negative Urine Bilirubin Negative Negative Urine Urobilinogen Normal Negative mg/dL Urine Leukocyte Esterase Negative Negative /uL Urine RBC 1 0 - 4 /hpf Urine Microscopic WBC < 1 0-5 /HPF Urine Squamous Epithelial Cells None seen <5 /hpf Urine Bacteria None seen None Seen /hpf Urine Hyaline Casts Few 0 - 2 /lpf Urine Mucus Few None Seen Urine Glucose Normal Normal mg/dL White Blood Count 8.3 4.4-10.8 10^3/uL Red Blood Count 6.16 H 4.0-5.20 10^6/uL Hemoglobin 12.8 12.2-16.2 g/dL Hematocrit 40.0 36.0-46.0 % Mean Corpuscular Volume 64.8 L 80.0-100.0 fL Mean Corpuscular Hemoglobin 20.8 L 28.0-32.0 pg Mean Corpuscular Hemoglobin Concent 32.1 32.0-36.0 g/dL Red Cell Distribution Width 16.0 H 11.8-14.3 % Platelet Count 208 140-450 10^3/uL Mean Platelet Volume 10.2 6.9-10.8 fL Neutrophils (%) (Auto) 89.6 H 37.0-80.0 % Lymphocytes (%) (Auto) 5.0 L 10.0-50.0 % Monocytes (%) (Auto) 4.5 0.0-12.0 % Eosinophils (%) (Auto) 0.7 0.0-7.0 % Basophils (%) (Auto) 0.2 0.0-2.0 % Neutrophils # (Auto) 7.4 1.6-8.6 10 ^3/uL Lymphocytes # (Auto) 0.4 0.4-5.4 10 ^3/uL Monocytes # (Auto) 0.4 0-1.3 10 ^3/uL Eosinophils # (Auto) 0.1 0-0.8 10 ^3/uL Basophils # (Auto) 0 0-0.2 10 ^3/uL Nucleated Red Blood Cells 0.1 % Sodium Level 140 136-145 mmol/L Potassium Level 4.7 3.5-5.1 mmol/L Chloride Level 110 H 98-107 mmol/L Carbon Dioxide Level 20 20-31 mmol/L Anion Gap 10 5-15 Blood Urea Nitrogen 25 H 9-23 mg/dL Creatinine 1.20 H 0.550-1.02 mg/dL Glomerular Filtration Rate Calc 51 >90 mL/min BUN/Creatinine Ratio 20.8 H 10.0-20.0 Serum Glucose 95 74-106 mg/dL Calcium Level 9.8 8.7-10.4 mg/dL Troponin I High Sensitivity < 3 L </=34 ng/L B-Type Natriuretic Peptide 67.59 0-100 pg/mL POC Glucose 81 70-106 mg/dl Microbiology Date/Time Source Procedure Growth Status 09/19/24 10:50 Stool Clostridium difficile Toxin Assay - Final Complete Assessment Syncope, likely vasovagal Hypertension Status post aortic valve replacement * EKGs shows normal sinus rhythm with no significant ST or T-wave changes * Serial trop I and BNP is within normal * Chest x-ray shows no intra thoracic abnormalities * Echo shows, moderate LVH with LVEF 55%, status post AVR Plan/recommendation (Case discussed with Dr. Guillen) * In context of normal EKGs, serial trop I and no significant finding of echo, no further cardiology workup required at the moment * We sign of the patient * Rest of plan per primary team Thank you for giving us the opportunity to take care of your patient. Please call back if you have any questions/concerns. Plan/Recommendation pt seen with cv team agree with plan vasovagal 2/2 to diarrhea IVF given, no major orthostatics normal mAVR on echo fu with her cards after dc signing off Plan discussed with: Patient, Spouse, Other (RN) ELVIS TURK Sep 20, 2024 13:25 EZIO GUILLEN MD Sep 20, 2024 13:31
--- NOTE | 2024-09-20 14:44 | DVH ---
PROCEDURE: MRI BRAIN HEAD WO CONTRAST INDICATION: ALOC EXAM DATE: 09/20/2024 02:00 PM COMPARISON: None TECHNIQUE: MRI of the brain without intravenous contrast. FINDINGS: Diffusion weighted images of the brain demonstrate no evidence of acute infarction. There is no evidence of acute intracranial hemorrhage, extra-axial collection, mass effect, midline s hift, herniation or hydrocephalus. The ventricles, sulci and cisterns appear age appropriate. The signal intensities of the brain parenchyma are within normal limits. Partially empty sella. The major vascular flow voids are present. Left maxillary sinus mucous retention cysts. The surrounding soft tissues and osseous structures are unremarkable. IMPRESSION: 1. No evidence of acute infarction, intracranial hemorrhage, mass effect or hydrocephalus. Partially empty sella. HS:Y
--- NOTE | 2024-09-20 16:41 | DVHDS2 ---
Discharge Summary Date of Admission Sep 18, 2024 at 18:23 Date of Discharge: Sep 20, 2024 Labs/Diagnostic Data: Laboratory Results Test 09/18/24 11:30 09/18/24 10:02 09/18/24 09:55 Urine Color Light-yellow (Yellow) Urine Clarity Clear (Clear) Urine pH 5.0 (5.0-9.0) Urine Specific [place] 1.009 (1.001-1.035) Urine Protein Negative (Negative) Urine Ketones Negative (Negative) Urine Blood Negative /uL (Negative) Urine Nitrite Negative (Negative) Urine Bilirubin Negative (Negative) Urine Urobilinogen Normal mg/dL (Negative) Urine Leukocyte Esterase Negative /uL (Negative) Urine RBC 1 /hpf (0 - 4) Urine Microscopic WBC < 1 /HPF (0-5) Urine Squamous Epithelial Cells None seen /hpf (<5) Urine Bacteria None seen /hpf (None Seen) Urine Hyaline Casts Few /lpf (0 - 2) Urine Mucus Few (None Seen) Urine Glucose Normal mg/dL (Normal) White Blood Count 8.3 10^3/uL (4.4-10.8) Red Blood Count 6.16 10^6/uL (4.0-5.20) Hemoglobin 12.8 g/dL (12.2-16.2) Hematocrit 40.0 % (36.0-46.0) Mean Corpuscular Volume 64.8 fL (80.0-100.0) Mean Corpuscular Hemoglobin 20.8 pg (28.0-32.0) Mean Corpuscular Hemoglobin Concent 32.1 g/dL (32.0-36.0) Red Cell Distribution Width 16.0 % (11.8-14.3) Platelet Count 208 10^3/uL (140-450) Mean Platelet Volume 10.2 fL (6.9-10.8) Neutrophils (%) (Auto) 89.6 % (37.0-80.0) Lymphocytes (%) (Auto) 5.0 % (10.0-50.0) Monocytes (%) (Auto) 4.5 % (0.0-12.0) Eosinophils (%) (Auto) 0.7 % (0.0-7.0) Basophils (%) (Auto) 0.2 % (0.0-2.0) Neutrophils # (Auto) 7.4 10 ^3/uL (1.6-8.6) Lymphocytes # (Auto) 0.4 10 ^3/uL (0.4-5.4) Monocytes # (Auto) 0.4 10 ^3/uL (0-1.3) Eosinophils # (Auto) 0.1 10 ^3/uL (0-0.8) Basophils # (Auto) 0 10 ^3/uL (0-0.2) Nucleated Red Blood Cells 0.1 % Sodium Level 140 mmol/L (136-145) Potassium Level 4.7 mmol/L (3.5-5.1) Chloride Level 110 mmol/L (98-107) Carbon Dioxide Level 20 mmol/L (20-31) Anion Gap 10 (5-15) Blood Urea Nitrogen 25 mg/dL (9-23) Creatinine 1.20 mg/dL (0.550-1.02) Glomerular Filtration Rate Calc 51 mL/min (>90) BUN/Creatinine Ratio 20.8 (10.0-20.0) Serum Glucose 95 mg/dL (74-106) Calcium Level 9.8 mg/dL (8.7-10.4) Troponin I High Sensitivity < 3 ng/L (</=34) B-Type Natriuretic Peptide 67.59 pg/mL (0-100) POC Glucose 81 mg/dl (70-106) Other Laboratory Tests 09/18/24 10:02 Condition at Discharge: Stable Final Diagnosis/Problems List 1. Syncope 2. Diarrhea ruled out C diff 3. Hypertension 4. AFib 5.dyslipidemia Discharge Disposition: Home SNF Discharge Will this Physician continue t: No Discharge Instruct/Medications Diet: Cardiac 2g Na,low cholest Activity: No Restrictions, As Tolerated Follow Up/Referral: Please follow up with the PCP in one week Follow up with the Cardiology in one week Follow up with the Neurology if scheduled. Medications: Resume home medications. Scheduled Aspirin (Aspirin Low Dose), 1 TAB PO DAILY, (Reported) Cholecalciferol (Vitamin D-3 Super Strengt), 50 MCG PO DAILY, (Reported) Fenofibrate (Fenofibrate), 1 TAB PO DAILY, (Reported) Ferrous Sulfate (Ferrous Sulfate), 1 TAB PO DAILY, (Reported) Furosemide (Furosemide), 1 TAB PO DAILY, (Reported) Metoprolol Tartrate (Lopressor), 1 TAB PO BID, (Reported) Warfarin Sodium (Warfarin Sodium), 1 TAB PO DAILY, (Reported) Discharge Statement: "Patient was advised to return to the ER or call 911 if any headaches, dizziness, shortness of breath, chest pain, abdominal pain, bleeding, fevers, or worsening of medical condition. Patient was counseled about treatment plan, medications, possible side effects, patientverbalized understanding. All questions were answered to the best of my ability. This discharge took greater then 30 minutes in planning, reviewing documentation, counseling the patient, and discussing with other team members." ASSESSMENT ASSESSMENT Assessment 1. Syncope 2. Diarrhea ruled out C diff 3. Hypertension 4.dyslipidemia CHANG ANDRES MD Sep 20, 2024 16:41
== END 2024-09-20 18:40 | disposition home or self-care (01) | DRG 312 ==
LOC: ER 09:26 → EDBD 09:26 → OVERFLOW 18:23 → EAST 23:32
PROVIDERS: ADMIT Internal Medicine; ATTEND Internal Medicine
DX: I95.1 Orthostatic hypotension (principal); I10 Essential (primary) hypertension; I95.89 Other hypotension; I48.91 Unspecified atrial fibrillation; E78.5 Hyperlipidemia, unspecified; I34.0 Nonrheumatic mitral (valve) insufficiency; Z90.49 Acquired absence of other specified parts of digestive tract; Z98.891 History of uterine scar from previous surgery; Z83.3 Family history of diabetes mellitus; Z82.49 Family history of ischemic heart disease and other diseases of the circulatory system; Z79.82 Long term (current) use of aspirin; Z79.899 Other long term (current) drug therapy; Z95.2 Presence of prosthetic heart valve
CPT/HCPCS: 36415; 70450; 70551; 71045; 72070; 72100; 72170; 80048; 81001; 82962; 83880; 84484; 85025; 87493; 93005; 93306; 93886; G0378; J1885